=== PATIENT | male | born 1940 | race Caucasian/White ===

== ENCOUNTER 2022-06-03 18:02 | Emergency (ER) | payer OTHER ==
[~2022-06-03] VITALS: Ht 162.6 cm; Wt 63.5 kg
[2022-06-03 18:06] VITALS: BP_SYST 91
--- NOTE | 2022-06-03 18:10 | NUR ---
PT BIBA AWAKE AND CONFUSED, AOX1. NO SOB OR DISTRESS. PT COMING FROM [facility] FOR A WITNESSED FALL AT THE FACILITY. FACILTTY DENIED HIM HITING HIS HEAD, AND DENIED KO. PT C/O PAIN TO R SHOULDER. PT HAS HX OF HTN, HYPOTHYROISISM, A-FIB, HLD, ANXIETY.
--- NOTE | 2022-06-03 18:11 | NUR ---
MD DR MONCADA AT BEDSIDE
[2022-06-03] MEDS ORDERED: HYDROcodone/ACETAMIN 5-325 MG TAB (NORCO/ VICODIN) PO ONE (18:15)
--- NOTE | 2022-06-03 18:53 | NUR ---
PT TAKEN TO CT
[2022-06-03 19:15] LABS: BASOPHILS # (AUTO) 0.1 K/uL (0.0-0.2); EOSINOPHILS # (AUTO) 0.2 K/uL (0.0-0.4); EOSINOPHILS % (AUTO) 3.2 % (0.0-4.0); HEMATOCRIT 34.5 % (36-54); LYMPHOCYTES # (AUTO) 0.9 K/uL (1.0-5.5); LYMPHOCYTES % (AUTO) 16.8 % (20.5-51.5); MEAN CORPUSCULAR HEMOGLOBIN 33 pg (27-31); MEAN CORPUSCULAR HGB CONC 35 % (32-36); MEAN CORPUSCULAR VOLUME 94 fL (79.0-98.0); MONOCYTES # (AUTO) 0.5 K/uL (0.0-1.0); NEUTROPHILS # (AUTO) 3.9 K/uL (1.8-7.7); PLATELET COUNT (AUTO) 157 K/uL (130-430); RED BLOOD CELL COUNT(AUTO) 3.67 MIL/uL (4.2-6.2); RED CELL DISTRIBUTION WIDTH 13.4 % (9.0-15.0); WHITE BLOOD COUNT (AUTO) 5.6 K/uL (4.8-10.8)
[2022-06-03 19:30] LABS: ALANINE AMINOTRANSFERASE 15 U/L (12-78); ANION GAP 7 (5-15); ASPARTATE AMINOTRANSFERASE 11 U/L (10-37); CALCIUM 8.8 mg/dL (8.4-11.0); CHLORIDE 108 mmol/L (98-107); CREATININE 1.04 mg/dL (0.55-1.30); GLUCOSE 147 mg/dL (70-99); TOTAL BILIRUBIN 0.3 mg/dL (0.0-1.0); UREA NITROGEN, BLOOD 26 mg/dL (8-21)
--- NOTE | 2022-06-03 19:30 | NUR ---
REPORT GIVEN TO SARATH CHRISTIANSON FOR RESUMPTION OF CARE. PT STABLE
--- NOTE | 2022-06-03 21:00 | NUR ---
pt resting with no signs of distress. awaiting dispo.
--- NOTE | 2022-06-04 00:10 | NUR ---
at bedside. new orders for repeat ct head.
[2022-06-04] MEDS ORDERED: LIDO1ADH71 TD (01:15)
[2022-06-04] MEDS ORDERED: ACET-2634 PO (01:15)
--- NOTE | 2022-06-04 03:00 | NUR ---
pt remains on monitors. pt up for discharge with eta 0830.
--- NOTE | 2022-06-04 06:14 | NUR ---
discussed case with house moving supervisor Ratna. told her about return eta to her facility and results of exams
--- NOTE | 2022-06-04 07:02 | NUR ---
SPOKE TO SHANDRA RODRIGUEZ, STATED THEY ARE SATURATED THIS MORNING AND MAY BE DELAYED. ETA [id number]
[2022-06-04 10:39] VITALS: BP_SYST 130
== END 2022-06-04 10:39 | disposition home or self-care (01) ==
LOC: SED 18:02
DX: S40.011A Contusion of right shoulder, initial encounter (principal); S09.90XA Unspecified injury of head, initial encounter; F03.90 Unspecified dementia, unspecified severity, without behavioral disturbance, psychotic disturbance, mood disturbance, and anxiety; Z79.899 Other long term (current) drug therapy; W19.XXXA Unspecified fall, initial encounter; Y93.89 Activity, other specified; Y92.89 Other specified places as the place of occurrence of the external cause; Y99.8 Other external cause status
CPT/HCPCS: 36415; 70450-TC; 71045; 72125-TC; 73030; 76376; 80053; 84484; 85025; 86886; 86900; 86901; 93005; 99285

== ENCOUNTER 2022-06-30 17:54 | Inpatient (IN) | payer OTHER, MEDICAID ==
[~2022-06-30] VITALS: Ht 167.6 cm; Wt 59.0 kg
[~2022-06-30 17:54] MED LIST: ACET-2634 PO; LIDO1ADH71 TD
[2022-06-30 17:55] VITALS: BP_SYST 151
[2022-06-30] MEDS ORDERED: SERT-131 PO (18:48)
[2022-06-30] MEDS ORDERED: LEVO25CA4 PO (18:48)
[2022-06-30] MEDS ORDERED: RISP0.5T5 PO (18:48)
[2022-06-30] MEDS ORDERED: LOSA50TA3 PO (18:48)
[2022-06-30] MEDS ORDERED: ASA81 PO (18:48)
[2022-06-30] MEDS ORDERED: NACL 0.9% 1,000 ML IV ONE (19:00)
[2022-06-30 19:40] LABS: BASOPHILS % (AUTO) 0.5 % (0.0-2.0); EOSINOPHILS % (AUTO) 0.2 % (0.0-4.0); HEMATOCRIT 34.4 % (36-54); HEMOGLOBIN 11.6 g/dL (14.0-18.0); LYMPHOCYTES # (AUTO) 0.6 K/uL (1.0-5.5); MEAN CORPUSCULAR HEMOGLOBIN 33 pg (27-31); MEAN CORPUSCULAR HGB CONC 34 % (32-36); MEAN CORPUSCULAR VOLUME 99 fL (79.0-98.0); MONOCYTES # (AUTO) 1.2 K/uL (0.0-1.0); MONOCYTES % (AUTO) 12.7 % (1.7-9.3); NEUTROPHILS # (AUTO) 7.5 K/uL (1.8-7.7); NEUTROPHILS % (AUTO) 80.6 % (40.0-70.0); PLATELET COUNT (AUTO) 184 K/uL (130-430); RED BLOOD CELL COUNT(AUTO) 3.47 MIL/uL (4.2-6.2); RED CELL DISTRIBUTION WIDTH 13.9 % (9.0-15.0); WHITE BLOOD COUNT (AUTO) 9.3 K/uL (4.8-10.8)
[2022-06-30 19:47] LABS: ANION GAP 6 (5-15); CALCIUM 8.6 mg/dL (8.4-11.0); CHLORIDE 107 mmol/L (98-107); CREATININE 1.07 mg/dL (0.55-1.30); GLUCOSE 117 mg/dL (70-99); UREA NITROGEN, BLOOD 25 mg/dL (8-21)
[2022-06-30 19:51] LABS: INR 1.1 (0.80-1.20); PROTHROMBIN TIME 11.1 SECS (9.5-12.5)
[2022-06-30 19:52] LABS: ALANINE AMINOTRANSFERASE 8 U/L (12-78); ALBUMIN 3.2 g/dL (3.4-4.8); ASPARTATE AMINOTRANSFERASE 9 U/L (10-37); C-REACTIVE PROTEIN QUANT 7.6 mg/dL (0-0.5); TOTAL BILIRUBIN 0.9 mg/dL (0.0-1.0)
[2022-06-30 19:56] LABS: ACETAMINOPHEN < 1 ug/mL (1-30); ALCOHOL, BLOOD < 3 mg/dL (<10)
[2022-06-30 20:13] LABS: ACETONE, SERUM NEGATIVE (NEGATIVE)
[2022-06-30 21:20] VITALS: BP_SYST 154
[2022-06-30 21:32] VITALS: BP_SYST 154
[2022-06-30] MEDS ORDERED: KCL 20 mEq in D5/0.45NS 1000mL 1,000 ML IV ONE (21:44)
[2022-06-30] MEDS ORDERED: ACETAMINOPHEN 325 MG TABLET PO PRN (21:45)
[2022-06-30] MEDS ORDERED: KCL 20 mEq in D5/0.45NS 1000mL 1,000 ML IV SCH ×2 (21:45→23:00)
[2022-06-30] MEDS: CIPROFLOXACIN LACT 400 MG/D5W 200 ML IV SCH (22:30)
[2022-06-30] MEDS ORDERED: CIPROFLOXACIN LACT 400 MG/D5W 200 ML IV ONE (23:20)
[2022-06-30 23:30] VITALS: BP_SYST 81
[2022-06-30 23:49] VITALS: BP_SYST 81
[2022-07-01] VITALS (11 sets, daily range): BP systolic 88–125
[2022-07-01] MEDS: D5NS 1,000 ML IV SCH ×2 (01:02→13:07)
[2022-07-01] MEDS ORDERED: NACL 0.9% 1,000 ML IV ONE ×2 (02:30)
[2022-07-01 03:26] LABS: BILIRUBIN,URINE 1+ (NEGATIVE); BLOOD, URINE 3+ (NEGATIVE); COLOR,URINE BROWN (YELLOW); GLUCOSE,URINE NEGATIVE (NEGATIVE); KETONES,URINE NEGATIVE (NEGATIVE); LEUKOCYTE ESTERASE ,URINE 2+ (NEGATIVE); NITRITE, URINE POSITIVE (NEGATIVE); PROTEIN URINE 2+ (NEGATIVE)
[2022-07-01 04:37] LABS: BARBITURATE, URINE NEGATIVE (NEG <=200); BENZODIAZEPINE, URINE NEGATIVE (NEG <=150); CANNABINOID, URINE NEGATIVE (NEG <=50); COCAINE, URINE NEGATIVE (NEG <=150); METHAMPHETAMINES SCREEN,URINE NEGATIVE (NEG <=500); OPIATE, URINE NEGATIVE (NEG <=100); PHENCYCLIDINE SCREEN,URINE NEGATIVE (NEG <=25); UR TRICYCLIC ANTIDEPRESSANTS NEGATIVE (NEG <=300); URINE AMPHETAMINE NEGATIVE (NEG <=500); URINE METHADONE NEGATIVE (NEG <=200); URINE OXYCODONE SCREEN NEGATIVE (NEG <=100); URINE PROPOXYPHENE SCREEN NEGATIVE (NEG <=300)
[2022-07-01 04:39] LABS: CLARITY/URINE CLOUDY (CLEAR)
[2022-07-01 04:43] LABS: BACTERIA,URINE MODERATE /HPF (None Seen); RBC,URINE >100 /HPF (0-3); WBC,URINE 80-100 /HPF (0-3)
[2022-07-01 06:50] LABS: BASOPHILS % (AUTO) 0.2 % (0.0-2.0); HEMATOCRIT 24.8 % (36-54); HEMOGLOBIN 8.3 g/dL (14.0-18.0); LYMPHOCYTES # (AUTO) 0.4 K/uL (1.0-5.5); MEAN CORPUSCULAR HEMOGLOBIN 33 pg (27-31); MEAN CORPUSCULAR HGB CONC 34 % (32-36); MEAN CORPUSCULAR VOLUME 98 fL (79.0-98.0); MONOCYTES # (AUTO) 1.2 K/uL (0.0-1.0); MONOCYTES % (AUTO) 12.2 % (1.7-9.3); NEUTROPHILS # (AUTO) 8.4 K/uL (1.8-7.7); NEUTROPHILS % (AUTO) 83.6 % (40.0-70.0); PLATELET COUNT (AUTO) 147 K/uL (130-430); RED BLOOD CELL COUNT(AUTO) 2.52 MIL/uL (4.2-6.2); RED CELL DISTRIBUTION WIDTH 13.5 % (9.0-15.0); WHITE BLOOD COUNT (AUTO) 10.1 K/uL (4.8-10.8)
[2022-07-01] MEDS: LEVOTHYROXINE SODIUM 0.025 MG TABLET PO SCH (07:00)
[2022-07-01 07:15] LABS: ANION GAP 6 (5-15); CALCIUM 7.5 mg/dL (8.4-11.0); CHLORIDE 112 mmol/L (98-107); CREATININE 1.05 mg/dL (0.55-1.30); FREE T4 (FREE THYROXINE) 0.8 ng/dL (0.6-1.6); GLUCOSE 138 mg/dL (70-99); THYROID STIMULATING HORMONE 0.73 uIu/mL (0.34-4.82); UREA NITROGEN, BLOOD 25 mg/dL (8-21)
[2022-07-01] MEDS: LOSARTAN POTASSIUM 50 MG TABLET (COZAAR) PO SCH (10:25)
[2022-07-01] MEDS: ASPIRIN 81 MG TAB.CHEW PO SCH (10:26)
[2022-07-01] MEDS: SERTRALINE HCL 50 MG TABLET PO SCH (10:27)
[2022-07-01] MEDS: CIPROFLOXACIN LACT 400 MG/D5W 200 ML IV SCH ×2 (11:29→21:38)
[2022-07-01] MEDS: ENOXAPARIN SODIUM 40 MG/0.4 ML SYRINGE SUBCUT SCH (21:39)
[2022-07-02 01:44] VITALS: BP_SYST 110
[2022-07-02] MEDS: D5NS 1,000 ML IV SCH ×2 (02:40→09:02)
[2022-07-02 04:00] VITALS: BP_SYST 112
[2022-07-02 06:13] LABS: BASOPHILS % (AUTO) 0.9 % (0.0-2.0); EOSINOPHILS # (AUTO) 0.1 K/uL (0.0-0.4); EOSINOPHILS % (AUTO) 1.2 % (0.0-4.0); HEMATOCRIT 25.8 % (36-54); HEMOGLOBIN 8.5 g/dL (14.0-18.0); LYMPHOCYTES # (AUTO) 0.7 K/uL (1.0-5.5); LYMPHOCYTES % (AUTO) 14.2 % (20.5-51.5); MEAN CORPUSCULAR HEMOGLOBIN 33 pg (27-31); MEAN CORPUSCULAR HGB CONC 33 % (32-36); MEAN CORPUSCULAR VOLUME 99 fL (79.0-98.0); MONOCYTES # (AUTO) 0.9 K/uL (0.0-1.0); MONOCYTES % (AUTO) 18.7 % (1.7-9.3); NEUTROPHILS # (AUTO) 3.3 K/uL (1.8-7.7); PLATELET COUNT (AUTO) 131 K/uL (130-430); RED BLOOD CELL COUNT(AUTO) 2.61 MIL/uL (4.2-6.2); RED CELL DISTRIBUTION WIDTH 13.5 % (9.0-15.0); WHITE BLOOD COUNT (AUTO) 5.1 K/uL (4.8-10.8)
[2022-07-02] MEDS: LEVOTHYROXINE SODIUM 0.025 MG TABLET PO SCH (06:24)
[2022-07-02 06:28] LABS: AMYLASE 43 U/L (0-100); ANION GAP 6 (5-15); CALCIUM 8.1 mg/dL (8.4-11.0); CHLORIDE 111 mmol/L (98-107); GLUCOSE 116 mg/dL (70-99); UREA NITROGEN, BLOOD 21 mg/dL (8-21)
[2022-07-02 06:38] LABS: TOTAL IRON BIND. CAPACITY 139 ug/dL (250-450)
[2022-07-02 08:20] VITALS: BP_SYST 132
[2022-07-02] MEDS: CIPROFLOXACIN LACT 400 MG/D5W 200 ML IV SCH ×2 (09:02→21:59)
[2022-07-02] MEDS: ASPIRIN 81 MG TAB.CHEW PO SCH (09:02)
[2022-07-02] MEDS: SERTRALINE HCL 50 MG TABLET PO SCH (09:03)
[2022-07-02] MEDS: LOSARTAN POTASSIUM 50 MG TABLET (COZAAR) PO SCH (09:03)
[2022-07-02 11:49] VITALS: BP_SYST 104
[2022-07-02 15:53] VITALS: BP_SYST 90
[2022-07-02] MEDS: SOD FERRIC GLUC COMPLEX/SUC 125 MG in NS 100 ML IV SCH (16:40)
[2022-07-02 20:00] VITALS: BP_SYST 142
[2022-07-02] MEDS: ENOXAPARIN SODIUM 40 MG/0.4 ML SYRINGE SUBCUT SCH (21:59)
[2022-07-03] VITALS: BP_SYST 153
[2022-07-03 04:00] VITALS: BP_SYST 129
[2022-07-03] MEDS: LEVOTHYROXINE SODIUM 0.025 MG TABLET PO SCH (06:08)
[2022-07-03] MEDS: D5NS 1,000 ML IV SCH ×2 (06:11→18:44)
[2022-07-03 08:19] VITALS: BP_SYST 152
[2022-07-03] MEDS: ASPIRIN 81 MG TAB.CHEW PO SCH (09:06)
[2022-07-03] MEDS: LOSARTAN POTASSIUM 50 MG TABLET (COZAAR) PO SCH (09:07)
[2022-07-03] MEDS: SERTRALINE HCL 50 MG TABLET PO SCH (09:07)
[2022-07-03] MEDS: CIPROFLOXACIN LACT 400 MG/D5W 200 ML IV SCH (09:08)
[2022-07-03 11:39] VITALS: BP_SYST 114
[2022-07-03] MEDS: SOD FERRIC GLUC COMPLEX/SUC 125 MG in NS 100 ML IV SCH (15:10)
[2022-07-03 16:16] VITALS: BP_SYST 120
[2022-07-03 21:00] VITALS: BP_SYST 143
[2022-07-03] MEDS: LINEZOLID 600 MG TABLET PO SCH (22:39)
[2022-07-03] MEDS: ENOXAPARIN SODIUM 40 MG/0.4 ML SYRINGE SUBCUT SCH (22:40)
[2022-07-04 00:51] VITALS: BP_SYST 138
[2022-07-04] MEDS: LEVOTHYROXINE SODIUM 0.025 MG TABLET PO SCH (06:22)
[2022-07-04] MEDS: D5NS 1,000 ML IV SCH ×2 (06:23→22:21)
[2022-07-04 09:07] VITALS: BP_SYST 133
[2022-07-04] MEDS: SERTRALINE HCL 50 MG TABLET PO SCH (09:11)
[2022-07-04] MEDS: ASPIRIN 81 MG TAB.CHEW PO SCH (09:11)
[2022-07-04] MEDS: LOSARTAN POTASSIUM 50 MG TABLET (COZAAR) PO SCH (09:11)
[2022-07-04] MEDS: LINEZOLID 600 MG TABLET PO SCH ×2 (09:12→22:20)
[2022-07-04 11:49] VITALS: BP_SYST 158
[2022-07-04] MEDS: SOD FERRIC GLUC COMPLEX/SUC 125 MG in NS 100 ML IV SCH (15:52)
[2022-07-04 18:27] VITALS: BP_SYST 145
[2022-07-04 20:18] VITALS: BP_SYST 150
[2022-07-04] MEDS: ENOXAPARIN SODIUM 40 MG/0.4 ML SYRINGE SUBCUT SCH (22:20)
[2022-07-05 00:21] VITALS: BP_SYST 124
[2022-07-05] MEDS: LEVOTHYROXINE SODIUM 0.025 MG TABLET PO SCH (06:08)
[2022-07-05 07:45] LABS: ANION GAP 10 (5-15); CALCIUM 8.6 mg/dL (8.4-11.0); CHLORIDE 112 mmol/L (98-107); CREATININE 0.77 mg/dL (0.55-1.30); GLUCOSE 106 mg/dL (70-99); UREA NITROGEN, BLOOD 13 mg/dL (8-21)
[2022-07-05 08:00] VITALS: BP_SYST 153
[2022-07-05 08:25] LABS: BASOPHILS % (AUTO) 0.7 % (0.0-2.0); EOSINOPHILS # (AUTO) 0.3 K/uL (0.0-0.4); HEMOGLOBIN 10.3 g/dL (14.0-18.0); LYMPHOCYTES # (AUTO) 0.9 K/uL (1.0-5.5); LYMPHOCYTES % (AUTO) 18.1 % (20.5-51.5); MEAN CORPUSCULAR HEMOGLOBIN 33 pg (27-31); MEAN CORPUSCULAR HGB CONC 33 % (32-36); MEAN CORPUSCULAR VOLUME 99 fL (79.0-98.0); MONOCYTES # (AUTO) 0.6 K/uL (0.0-1.0); MONOCYTES % (AUTO) 12.9 % (1.7-9.3); NEUTROPHILS % (AUTO) 62.3 % (40.0-70.0); PLATELET COUNT (AUTO) 182 K/uL (130-430); RED BLOOD CELL COUNT(AUTO) 3.13 MIL/uL (4.2-6.2); RED CELL DISTRIBUTION WIDTH 13.9 % (9.0-15.0); WHITE BLOOD COUNT (AUTO) 4.7 K/uL (4.8-10.8)
[2022-07-05] MEDS: ASPIRIN 81 MG TAB.CHEW PO SCH (08:35)
[2022-07-05] MEDS: LINEZOLID 600 MG TABLET PO SCH ×2 (08:35→21:51)
[2022-07-05] MEDS: SERTRALINE HCL 50 MG TABLET PO SCH (08:36)
[2022-07-05] MEDS: LOSARTAN POTASSIUM 50 MG TABLET (COZAAR) PO SCH (08:36)
[2022-07-05] MEDS: D5NS 1,000 ML IV SCH (10:54)
[2022-07-05 11:32] VITALS: BP_SYST 116
[2022-07-05] MEDS ORDERED: POTASSIUM CHLORIDE 20 MEQ/PKT PACKET PO ONE (13:00)
[2022-07-05] MEDS: SOD FERRIC GLUC COMPLEX/SUC 125 MG in NS 100 ML IV SCH (15:35)
[2022-07-05 17:27] VITALS: BP_SYST 124
[2022-07-05 20:09] VITALS: BP_SYST 154
[2022-07-05 20:27] VITALS: BP_SYST 154
[2022-07-05] MEDS: ENOXAPARIN SODIUM 40 MG/0.4 ML SYRINGE SUBCUT SCH (21:52)
[2022-07-06 00:39] VITALS: BP_SYST 159
[2022-07-06] MEDS: LEVOTHYROXINE SODIUM 0.025 MG TABLET PO SCH (06:24)
[2022-07-06 07:58] VITALS: BP_SYST 109
[2022-07-06] MEDS: ASPIRIN 81 MG TAB.CHEW PO SCH (08:41)
[2022-07-06] MEDS: LOSARTAN POTASSIUM 50 MG TABLET (COZAAR) PO SCH (08:41)
[2022-07-06] MEDS: SERTRALINE HCL 50 MG TABLET PO SCH (08:42)
[2022-07-06] MEDS: LINEZOLID 600 MG TABLET PO SCH (09:03)
[2022-07-06 11:35] VITALS: BP_SYST 119
[2022-07-06] MEDS: D5NS 1,000 ML IV SCH ×2 (12:53)
[2022-07-06] MEDS ORDERED: POTASSIUM CHLORIDE 20 MEQ/PKT PACKET PO ONE (13:30)
[2022-07-06 15:53] VITALS: BP_SYST 126
[2022-07-06 16:27] VITALS: BP_SYST 126
== END 2022-07-06 17:20 | DRG 871 ==
LOC: SED 17:54 → STU 20:32 → SMU 07-06 13:26
PROVIDERS: ADMIT Family Medicine; ATTEND Family Medicine
DX: A41.9 Sepsis, unspecified organism (principal); G93.41 Metabolic encephalopathy; E87.20 Acidosis, unspecified; N39.0 Urinary tract infection, site not specified; E86.0 Dehydration; E03.9 Hypothyroidism, unspecified; Z20.822 Contact with and (suspected) exposure to COVID-19; I10 Essential (primary) hypertension; D50.9 Iron deficiency anemia, unspecified; Z88.0 Allergy status to penicillin
CPT/HCPCS: 36415; 70450-TC; 71045; 76376; 80048; 80053; 80307; 81000; 82009; 82140; 82150; 82550; 82746; 82962; 83540; 83550; 83605; 83735; 83880; 84439; 84443; 84484; 85025; 85610-TC; 85730-TC; 86140; 87040; 87086; 87186-TC; 93005; 96360; 97163-GP; 97530-GP; 99285; G0378; G0480; G0481; G0482; J0744; J1650; J2916